=== PATIENT | female | born 1990 | race Caucasian/White ===

== ENCOUNTER 2025-01-24 14:40 | Emergency (ER) | payer SELFPAY ==
--- NOTE | ~2025-01-24 | US_ITS ---
LEFT LOWER EXTREMITY VENOUS ULTRASOUND Ordering provider: Murali Valentine MD History: . Left lat leg ecchymosis and swelling . Comparison: None. FINDINGS: --COMMON FEMORAL: Patent and free of thrombus. Normal compressibility, phasic flow and augmentation. --PROXIMAL SUPERFICIAL FEMORAL: Patent and free of thrombus. Normal compressibility, phasic flow and augmentation. --DISTAL SUPERFICIAL FEMORAL: Patent and free of thrombus. Normal compressibility, phasic flow and au gmentation. --POPLITEAL: Patent and free of thrombus. Normal compressibility, phasic flow and augmentation. --POSTERIOR TIBIAL: Patent and free of thrombus. Normal compressibility, phasic flow and augmentation . IMPRESSION: Negative left lower extremity venous US. No deep vein thrombosis. Reviewed, dictated and finalized at location [facility]. [facility]
[2025-01-24 14:42] VITALS: BP 137/75; PULSE 76; RESP 16; TEMP 36.6; O2SAT 100
--- NOTE | 2025-01-24 15:18 | ED_ITS ---
HPI - General Adult General Chief complaint: Extremity Problem,Nontraumatic Stated complaint: Left leg bruising and pain Time Seen by Provider: 01/24/25 14:56 History of Present Illness HPI narrative: 34-year-old female present to the emergency department for evaluation for left lower extremity swelling and ecchymosis. Patient reports on January 16 she 1st noticed the left lateral leg swelling. Patient then noticed the bruising a few days later. Patient did have follow-up with urgent care yesterday and was told that she most likely had a pulled muscle versus a contusion. Patient's discharge papers did not show that she had clearance to return to work so patient presented for a return to work no but also wanted further evaluation. Ultrasound will be ordered to evaluate for DVT. Related Data Allergies Allergy/AdvReac Type Severity Reaction Status Date / Time Penicillins Allergy Intermediate Vomiting Verified 01/24/25 14:41 Review of Systems Review of Systems: All systems reviewed & are unremarkable except as noted in HPI and below Exam Narrative: APPEARANCE: Well appearing, no pain, no distress, well-nourished. HEAD: normocephalic, atraumatic. EYES: PERRLA/EOMI, conjunctivae clear. NOSE: Normal no drainage EARS:TMS clear with good light reflex. THROAT: Pharynx clear, no exudate. NECK: Supple. No adenopathy, no masses. RESPIRATORY: Airway patent, respirations nonlabored. Clear to auscultation bilaterally, no rales, rhonchi, wheezing. CARDIOVASCULAR: Regular rate and rhythm without murmurs rubs or gallops. ABDOMINAL: Soft, nontender, nondistended, normal bowel sounds MUSCULOSKELETAL: Left lateral calf ecchymosis NEURO: Alert. Cranial nerves II through XII intact. Grossly intact SKIN: Warm, dry. Normal Color Course Vital Signs Vital signs: Vital Signs Temperature 97.8 F 01/24/25 14:42 Pulse Rate 76 01/24/25 14:42 Respiratory Rate 16 01/24/25 14:42 Blood Pressure 137/75 01/24/25 14:42 Pulse Oximetry 100 01/24/25 14:42 Oxygen Delivery Room Air 01/24/25 14:42 Temperature 97.8 F 01/24/25 14:42 Pulse Rate 69 01/24/25 16:04 Respiratory Rate 16 01/24/25 16:04 Blood Pressure 106/69 01/24/25 16:04 Pulse Oximetry 100 01/24/25 16:04 Oxygen Delivery Room Air 01/24/25 14:42 Medical Decision Making MDM Narrative Medical decision making narrative: 34-year-old female present to the emergency department for evaluation for left lower extremity swelling. Ultrasound was negative for DVT. Suspect muscular strain versus as traumatic ecchymosis. Patient was encouraged of close follow- up with her primary care physician. Patient was requesting a work note to return to work and does was provided. Differential Diagnosis Differential Diagnosis: Hematoma, contusion, muscular strain, DVT Vital Signs Vital Signs: Vital Signs Temperature 97.8 F 01/24/25 14:42 Pulse Rate 76 01/24/25 14:42 Respiratory Rate 16 01/24/25 14:42 Blood Pressure 137/75 01/24/25 14:42 Pulse Oximetry 100 01/24/25 14:42 Oxygen Delivery Room Air 01/24/25 14:42 Temperature 97.8 F 01/24/25 14:42 Pulse Rate 69 01/24/25 16:04 Respiratory Rate 16 01/24/25 16:04 Blood Pressure 106/69 01/24/25 16:04 Pulse Oximetry 100 01/24/25 16:04 Oxygen Delivery Room Air 01/24/25 14:42 Imaging Data Radiologist's impression: Impressions Venous Doppler Study 01/24/25 15:35 IMPRESSION: Negative left lower extremity venous US. No deep vein thrombosis. Discharge Plan Discharge Clinical Impression: Superficial bruising of lower leg Patient Disposition: Home, Self-Care Condition: Stable Instructions: Antibiotic Form, Hematoma (ED) Additional Instructions: Ultrasound was negative for DVT. You are cleared to return to work. Have close follow-up with your primary care physician. If you have any worsening symptoms then please call or return to the emergency department. Patient Language: Lithuanian Follow-up/Referrals: UNKNOWN,DOCTOR [Primary Care Provider] - Stand Alone Forms: Work/School Release IP
[2025-01-24 16:04] VITALS: BP 106/69; PULSE 69; RESP 16; O2SAT 100
== END 2025-01-24 16:07 | disposition home or self-care (01) ==
PROVIDERS: Emergency Provider Emergency Medicine
DX: S80.12XA Contusion of left lower leg, initial encounter (principal); X58.XXXA Exposure to other specified factors, initial encounter
CPT/HCPCS: 93971; 99284